=== PATIENT | female | born 1985 | race Caucasian/White ===

== ENCOUNTER 2020-10-04 03:59 | Emergency (ER) | payer MEDICAID, SELFPAY ==
[2020-10-04 04:00] VITALS: BP 141/103; PULSE 109; RESP 16; TEMP 36.4; O2SAT 97
--- NOTE | 2020-10-04 04:11 | ED.GENADUL_ITS ---
Discharge Plan Disposition Patient Disposition: HOME Condition: Stable Discharge Details Clinical Impression: Adam infection Primary Care Provider: April Grant ED Provider: Dragan Martínez Home Meds and New Rx's Prescriptions: New prednisone 20 mg tablet 60 mg PO DAILY 4 Days Qty: 12 RF: 0 fluconazole 100 mg tablet 100 mg PO DAILY Qty: 13 RF: 0 Continued methylphenidate HCl [Ritalin] 20 mg Tablet 20 mg PO QID RF: 0 ergocalciferol (vitamin D2) 25,000 unit Capsule 50,000 unit PO QWEEK RF: 0 Discharge Instructions Additional Instructions: Your rash is due to a yeast infection if rash is not improving within 1-2 weeks follow up with your primary care provider return to the emergency department if you have worsening pain, fevers or feel more ill Medical Decision Making 34 yo female with hx of iddm who is homeless and residing at the [facility] and normally lives in [facility] per patient, comes in with 4 days of rash in the inguinal regional and near the anus and has never had this before. She called ems as she states it was itching and had no ride to get here. She denies fevers, severe pain, vaginal discharge, diarrhea, bloody stools. She denies smoking, alcohl use but uses marijuana that she says is for medical reasons. Denies ivdu. She is in no distress on exam speaking in full sentences. With nurse pastrycook at bedside Susan Leung exam was performed and she has mild erythema of inguinal folds with satellite lesions and around the anus also has mild erythema with satellite lesions consistent with candidal infection. She has no fluctuance, no warmth or pain to palpation or crepitus, no findings to suggest cellulitis, abscess or necrotizing fascitis. no vesicular lesions to suggest herpes. Will start her on fluconazole as she states otc topical antifungal she has been using hasn't helped and given the degree of itching will try prednisone. She was advised to f/u with her pcp if not improving and standard return precautions given Differential Diagnosis Differential Diagnosis: adam, dermatitis HPI General Mode of arrival: EMS . Date/Time Provider Initiated Documentation: 10/04/20 04:03 . Limitations to Documentation: no limitations . Information obtained by: patient . History of Present Illness 34 year old F presents to the emergency department with the chief complaint of rash , described as moderate, Patient started experiencing this day(s) (4) and it has been constant. No relieving factors improve symptom(s), No exacerbating factors reported . Patient did receive the following treatments prior to arrival, none Related Data Home Medications Medication Instructions Recorded Confirmed ergocalciferol (vitamin D2) 50,000 unit PO QWEEK 10/04/20 10/04/20 fluconazole 100 mg PO DAILY #13 tab 10/04/20 methylphenidate HCl [Ritalin] 20 mg PO QID 10/04/20 10/04/20 prednisone 60 mg PO DAILY 4 Days #12 tab 10/04/20 Previous Rx's Medication Instructions Recorded fluconazole 100 mg PO DAILY #13 tab 10/04/20 prednisone 60 mg PO DAILY 4 Days #12 tab 10/04/20 Allergies Allergy/AdvReac Type Severity Reaction Status Date / Time amoxicillin Allergy Severe Anaphylaxis Unverified 10/04/20 04:09 erythromycin base Allergy Severe Anaphylaxis Unverified 10/04/20 04:09 [From Erythrocin] Penicillins Allergy Severe Anaphylaxis Unverified 10/04/20 04:09 shellfish derived Allergy Severe Hives Unverified 10/04/20 04:09 General Stated Complaint: RashLesion EPIFANIO: 4 Review of Systems All systems reviewed & are unremarkable except as noted in HPI and below Constitutional Constitutional: Denies chills, Denies fever(s) and Denies weakness Cardiovascular Cardiovascular: Denies chest pain and Denies dyspnea Respiratory Respiratory: Denies cough and Denies dyspnea Gastrointestinal Gastrointestinal: Denies abdominal pain, Denies nausea and Denies vomiting Neurologic Neurologic: Denies weakness Psychiatric Psychiatric: Denies depression [facility] Social History Smoking/Tobacco Use Status: Never Smoking risk assessment performed?: Yes Alcohol Intake: former Substance use type: marijuana Do you feel safe at home: Yes Do you feel safe in your relationship?: Yes Exam Const General: no acute distress Orientation: alert HENMT Head: normal to inspection Ears: external ears normal General nose exam: external nose normal Mouth: moist mucous membranes Eyes General: appearance normal, both eyes and all related structures Neck Neck: normal visual inspection Resp Effort & Inspection: normal respiratory effort and able to speak in complete sentences Cardio Rate: regular rate Skin General skin exam: elasticity normal Neuro General: patient alert and patient oriented x3 Extrem General: normal to inspection Psych Mental Status: mental status grossly normal Course Vital Signs Vital signs: Vital Signs Temperature 36.4 C L 10/04/20 04:00 Pulse 109 H 10/04/20 04:00 Respiratory Rate 16 10/04/20 04:00 Blood Pressure 141/103 H 10/04/20 04:00 Pulse Oximetry 97 10/04/20 04:00 Temperature 36.4 C L 10/04/20 04:00 Temperature Source Tympanic 10/04/20 04:00 Pulse 109 H 10/04/20 04:00 Respiratory Rate 16 10/04/20 04:00 Respiratory Effort Non-Labored 10/04/20 04:00 Blood Pressure 141/103 H 10/04/20 04:00 Pulse Oximetry 97 10/04/20 04:00 Oxygen Delivery Method Room Air 10/04/20 04:00 Oxygen Flow Rate 0 10/04/20 04:00 Pain Level 9 10/04/20 04:00
[2020-10-04] MEDS: predniSONE 20 MG TAB 60 MG PO (04:16)
[2020-10-04] MEDS: Fluconazole 100 MG TAB PO (04:16)
--- NOTE | 2020-10-04 04:17 | NUR.NOTE ---
Nursing Note: RCT called for pt ride back to [facility]
--- NOTE | 2020-10-04 07:14 | NUR.NOTE ---
Nursing Note: RCT referral given to Care Management. Vicky Taylor
== END 2020-10-04 05:32 | disposition home or self-care (01) ==
LOC: ER 04:22
PROVIDERS: Emergency Provider Emergency Medicine; PCP Nurse Practitioner Family
DX: B37.2 Candidiasis of skin and nail (principal)
CPT/HCPCS: 99283; J7512